=== PATIENT | female | born 2000 | race Caucasian/White ===

== ENCOUNTER 2020-08-05 23:00 | Inpatient (IN) | payer OTHER, MEDICAID ==
[~2020-08-05] VITALS: Ht 154.9 cm; Wt 59.5 kg
--- NOTE | 2020-08-05 23:20 | NUR ---
2320- PATIENT AMBULATORY TO OUR UNIT WITH MOTHER BY HER SIDE FOR SUPPORT. PATIENT IS A AT 39.0 HERE FOR INDUCTION DUE TO HIGH BLOOD PRESSURES IN THE OFFICE. PATIENT REPORTS GFM, NO LOF, SOME SPOTTY FROM TODAYS APPOINTMENT, AND SOME CONTRACTIONS, BUT NO REGULAR. 2330- EFM AND TOCO ON AND TRACING. VITALS TAKEN, ASSESSMENT COMPLETED, CONSENTS SIGNED, IV STARTED. PLAN OF CARE FOR THE NIGHT DISCUSSED AND THIS RN ANSWERED ANY QUESTIONS. PATIENT AND MOTHER DENIES FURTHER NEEDS, CALL LIGHT WITHIN REACH.
[2020-08-06] VITALS (63 sets, daily range): BP systolic 95–154; BP diastolic 48–96; PULSE 77–144; TEMP 97.4–98.3
--- NOTE | 2020-08-06 00:30 | NUR ---
2345- PATIENT VOICED HAVING A PHOBIA OF NEEDLES AND WAS NERVOUS TO GET AN IV. PATIENT VOICED NEVER BEING IN THE HOSPITAL AND NEVER HAVING AN IV. THIS RN TALKED THE PATIENT THROUGH WHAT THE PROCESS WAS AND WHAT IT WOULD FEEL LIKE. PATIENT VOICED NEEDING A MINUTE TO GATHER HERSELF AND THEN SHE WOULD BE READY. THIS RN AGREED. PATIENT VISIBLY SWEATY AND PALE. THIS RN HELPED THE PATIENT TO CALM DOWN. 0000- THE PATIENT VOICED BEING READY TO START THE IV. THIS RN ADVISED THE PATIENT NOT TO LOOK AT THE NEEDLE AND TO FOCUS ON HER MOM OR THE TV OR HER PHONE AND THAT I WOULD TELL HER EVERYRHING I WAS GOING BEFORE DOING IT. THE PATIENT THEN LOOKED AT THE NEEDLED AND PULLED HER HAND AWAY AND STARTED TO HAVE A BREAKDOWN. PATIENT WAS CRYING AND SAYING SHE WANTED TO GO HOME. PATIENT THEN STATED SHE WAS HOT AND NEEDED WATER. THIS RN GOT THE PATIENT FRESH ICE WATER AND HELPED CALM THE PATIENT DOWN. AFTER A WHILE THIS RN THEN VOICED THAT WE NEEDED TO GET THE IV STARTED SOON SHE HAD BEEN HERE FOR ALMOST AN HOUR ALREADY AND WE NEEDED TO GET THE INDUCTIION PROCESS STARTED. THIS RN HELPED CALM THE PATIENT BACK DOWN AND GET READY FOR IV PROCESS. 0025- IV STARTED ON THE FIRST STICK. LABS DRAWN AND FLUIDS STARTED. IV PATENT WITH NO REDENING OR SWELLING. PATIENT VOICED THAT WAS NOT BAD SHE EXPECTED. THE PATIENT TOLERATED THE PROCEDURE WELL. 0030- THIS RN THEN CHECKED THE PATIENT BEFORE STARTING PITOCIN. PATIENT IS /-3. 0035- PITOCIN STARTED AND RUNNING PER PROTOCOL AT 2MU/HR. DISCUSSED PLAN OF CARE OF THE EVENING. THE PATIENT VERBALIZED UNDERSTANDING WITH NO FURTHER QUESTIONS. CALL LIGHT WITHIN REACH.
[2020-08-06] MEDS ORDERED: PRENATAL TABLET PO (00:48)
[2020-08-06 01:32] LABS: BASO # 0.1 (0.0-0.2); BASO % 0.5 % (0.0-2.0); EOS # 0.1 (0.0-0.7); EOS % 0.9 % (0-4.0); GRAN # 7.6 (1.4-6.5); HEMATOCRIT 37.4 % (35.0-45.0); HEMOGLOBIN 12.1 g/dl (12.0-15.0); LYMPH # 1.8 (1.2-3.4); LYMPH % 16.1 % (20.0-51.0); MEAN CELL VOLUME 84 fl (80.0-95.0); MEAN CORPUSCULAR HEMOGLOBIN 27 pg (26.0-32.0); MEAN CORPUSCULAR HGB CONC 32 g/dl (33.0-37.0); MEAN PLATELET VOLUME 10.8 fl (7.4-10.4); MONO # 1.3 (0.1-0.6); MONO % 12.2 % (1.7-9.3); PLATELET COUNT 287 K/mm3 (130-400); RED BLOOD COUNT 4.44 M/mm3 (4.10-5.30); REDCELL DISTRIBUTION WIDTH-CV 13.5 % (11.5-14.5)
[2020-08-06 01:44] LABS: BILIRUBIN,TOTAL 0.8 mg/dL (0.0-1.0); CREATININE, serum 0.43 (0.52-1.25); POTASSIUM 3.7 mmol/L (3.4-5.0); TOTAL PROTEIN 8.1 gm/dL (6.4-8.2)
[2020-08-06 01:48] LABS: TRICYCLIC ANTIDEPRESS URINE NEGATIVE
--- NOTE | 2020-08-06 04:15 | NUR ---
0415- THIS RN TO BEDSIDE TO DECREASE PITOCIN FROM 10 TO 8 THE PATIENT WAS YELENA TOO MUCH. PATIENT WAS YELENA EVERY 1-1.5 MINUTES WITH LITTLE TO NO BREAK IN BETWEEN CONTRACTIONS. PATIENT STARTING TO GET UNCOMFORTABLE BUT DENIES NEEDING ANYTHING AT THE MOMENT.
--- NOTE | 2020-08-06 05:40 | NUR ---
0540- THIS RN TO BEDSIDE TO HELP PATIENT SET UP FOR EPIDURAL. MATERNAL 02 PLACED AND PATIENT SITTING UP. PATIENT VERY ANXIOUS ABOUT THE EPIDURAL AND THIS RN HELPED CALM PATIENT DOWN 0542- DAHIANA COURTNEY AT BEDSIDE AND ALSO HELPING TO CALM PATIENT DOWN. 0548- SS, SEE ANESTHESIA RECORD. PATIENT TOLERATED WELL. 0555- PATIENT HELPED TO WL POSITION. VITALS STABLE. THIS RN REMAINS AT BEDSIDE.
--- NOTE | 2020-08-06 07:10 | NUR ---
Dr. Green at the bedside. FHR tracing reviewed. SVE per Dr. Green with no change. AROM at 0713 with clear fluid.
--- NOTE | 2020-08-06 13:05 | NUR ---
1305- SVE by this RN +1. Spoke with Dr. Green for an update and FHR tracing reviewed. 1307- Torres removed without complications. 1310- Pushing started. 1330- Dr. Green at the bedside. Pt set up for delivery. 1341- of viable male . [place] placed on mom's abdomen. Cords clamped and cut. Care of the given to nursery RN at the bedside. 1344- of placenta. Pitocin started at 333ml/hr per order and protocol. Fundus firm and moderate lochia.
[2020-08-06 18:24] LABS: MEAN CELL VOLUME 84 fl (80.0-95.0); MEAN CORPUSCULAR HGB CONC 33 g/dl (33.0-37.0); MEAN PLATELET VOLUME 10.3 fl (7.4-10.4); PLATELET COUNT 251 K/mm3 (130-400); RED BLOOD COUNT 3.21 M/mm3 (4.10-5.30); REDCELL DISTRIBUTION WIDTH-CV 13.5 % (11.5-14.5)
[2020-08-06 18:29] LABS: HEMOGLOBIN 8.9 g/dl (12.0-15.0); MEAN CORPUSCULAR HEMOGLOBIN 28 pg (26.0-32.0)
[2020-08-06 19:04] LABS: BAND 1 % (0-10); EOSINOPHIL 1 % (0-4); LYMPHOCYTE 6 % (20.0-51.0); NEUTROPHILS 85 % (42.0-75.2)
[2020-08-07 04:10] VITALS: BP 130/54; PULSE 96; TEMP 98.1
[2020-08-07 08:00] VITALS: BP 103/58; PULSE 88; TEMP 97.7
[2020-08-07 08:33] LABS: HEMATOCRIT 23.9 % (35.0-45.0); HEMOGLOBIN 7.9 g/dl (12.0-15.0); MEAN CELL VOLUME 85 fl (80.0-95.0); MEAN CORPUSCULAR HEMOGLOBIN 28 pg (26.0-32.0); MEAN CORPUSCULAR HGB CONC 33 g/dl (33.0-37.0); MEAN PLATELET VOLUME 10.1 fl (7.4-10.4); PLATELET COUNT 241 K/mm3 (130-400); RED BLOOD COUNT 2.83 M/mm3 (4.10-5.30); REDCELL DISTRIBUTION WIDTH-CV 13.7 % (11.5-14.5)
--- NOTE | 2020-08-07 09:26 | NUR ---
SW responded to consult. The patient and her baby, Carroll, UDS was positive for cannibinoids. SHERITA met with the patient and her mother, Aimee (ph#[phone]). The patient gave SW permission to do intake and discuss her lab results in front of her mother. The patient lives on [address] with her mother. She states that the father of the baby, Matthew Chavez, and her are not together, but that he plans on being involved with baby. 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 She states that they have a carseat, formula, crib, and all supplies for baby. She states that they make too much for WIC, so was not approved for it. SW addressed the positive UDS for cannibinoids. The patient reports that she took an edible gummy a month ago. She reports that this was the only time she ever ingested or did marijuana while . She reports no concerns doing marijuana again when she takes baby home. The patient and her mother had no concerns for SW about bringing baby home on discharge. SHERITA made a CPS report. Intake ID#[id number]. The baby's cord blood is pending. SHERITA updated the patient's RN on the above.
--- NOTE | 2020-08-07 11:56 | NUR ---
Initial visit; Patient thanked Commissioning Editor for offering congratulaations and God's blessings for the of her son. Commissioning Editor thanked patient for choosing [facility].
[2020-08-07] MEDS ORDERED: MOTRIN 800800 MG/TAB PO (13:13)
== END 2020-08-07 15:40 | disposition home or self-care (01) | DRG 806 ==
LOC: LDRO 23:00 → LDR 23:10 → OB 23:10
PROVIDERS: Obstetrics & Gynecology; ADMIT Obstetrics & Gynecology
PROC: 10E0XZZ Delivery of Products of Conception, External Approach (ICD-10-PCS; principal; 2020-08-06)
PROC: 0KQM0ZZ Repair Perineum Muscle, Open Approach (ICD-10-PCS; 2020-08-06)
PROC: 10907ZC Drainage of Amniotic Fluid, Therapeutic from Products of Conception, Via Natural or Artificial Opening (ICD-10-PCS; 2020-08-06)
DX: O11.4 Pre-existing hypertension with pre-eclampsia, complicating childbirth (principal); D62 Acute posthemorrhagic anemia; Z37.0 Single live birth; O69.81X0 Labor and delivery complicated by cord around neck, without compression, not applicable or unspecified; O70.1 Second degree perineal laceration during delivery; O90.81 Anemia of the puerperium; O72.1 Other immediate postpartum hemorrhage; Z3A.39 39 weeks gestation of pregnancy
CPT/HCPCS: J2405; J2590; J7120